=== PATIENT | female | born 1980 | race Caucasian/White ===

== ENCOUNTER 2017-12-17 09:51 | Emergency (ER) | payer OTHER ==
[~2017-12-17] VITALS: Ht 162.6 cm; Wt 98.0 kg
[~2017-12-17 09:51] MED LIST: ACET-8386 PO
[2017-12-17 10:12] VITALS: BP 121/84
[2017-12-17] MEDS ORDERED: IBUP-1842 PO (10:17)
--- NOTE | 2017-12-17 10:33 | NUR ---
PT BROUGHT INTO OF 3 WITH C/O R HIP PAIN X4DAYS, STS RADIATING DOWN R LEG. STS TAKING IBUPROFEN AT HOME FOR PAIN, BUT NO RELIEF. DENIES TRAUMA OR FEVER. RESP EVEN AND UNLABORED, ON RA@99%. HX DENIES. AX DENIES.
[2017-12-17] MEDS ORDERED: KETOROLAC 30 MG/ML VIAL IM ONE (11:05)
--- NOTE | 2017-12-17 11:34 | NUR ---
PT TO X-RAY VIA WC
--- NOTE | 2017-12-17 12:14 | NUR ---
pt reports feeling better after pain med given. [email or web address] for disposition.
[2017-12-17 12:56] VITALS: BP 132/85
== END 2017-12-17 12:57 | disposition home or self-care (01) ==
LOC: MED 09:51
DX: S73.101A Unspecified sprain of right hip, initial encounter (principal); E66.9 Obesity, unspecified; Z79.899 Other long term (current) drug therapy; X58.XXXA Exposure to other specified factors, initial encounter; Y93.89 Activity, other specified; Y92.89 Other specified places as the place of occurrence of the external cause; Y99.8 Other external cause status
CPT/HCPCS: 73502; 81002; 81025; 96372; 99284; J1885

== ENCOUNTER 2019-03-08 09:37 | Emergency (ER) | payer OTHER ==
[~2019-03-08] VITALS: Ht 165.1 cm; Wt 103.9 kg
[~2019-03-08 09:37] MED LIST changes: -ACET-8386 PO; +IBUP-1842 PO
[2019-03-08 09:44] VITALS: BP 147/97
--- NOTE | 2019-03-08 09:45 | NUR ---
Patient ambulated to bed 3. RN evaluating patient at bedside.
--- NOTE | 2019-03-08 09:45 | NUR ---
ALEXANDRU MOTHER. AAO X4. C/O BLURRY VISION IN THE RIGHT EYE ONLY WHEN READING X 3 WEEKS, NO TRAUMA, PT WAS REFERRED HERE BY PCP. PER PATIENT SHE THINKS THAT THERE IS A FOREIGN OBJECT INSIDE HER RIGHT EYE. PT STATES NO PAIN. DENIES DIZZINESS, N/V. STEADY GAIT. LEFT EYE REACTIVE TO LIGHT, BRISK 3 MM. R EYE DILATED [place]UGG[place] 5 MM. EQUAL DORIS STRENGTH TO UPPER AND LOWER EXTREMITIES. HOB UP. BED SIDE RAILS UP X1. ON LOW BED POSITION, LOCKED. MD MONTANEZ MADE AWARE OF PT STATUS. Addendum: 03/08/19 at 1039 by [employer] ALEXANDRU MOTHER. AAO X4. C/O BLURRY VISION IN THE RIGHT EYE ONLY WHEN READING X 3 WEEKS, NO TRAUMA, PT WAS REFERRED HERE BY PCP. PER PATIENT SHE THINKS THAT THERE IS A FOREIGN OBJECT INSIDE HER RIGHT EYE. PT STATES NO PAIN. DENIES DIZZINESS, N/V. STEADY GAIT. LEFT EYE REACTIVE TO LIGHT, BRISK 3 MM. R EYE DILATED. EQUAL DORIS STRENGTH TO UPPER AND LOWER EXTREMITIES. HOB UP. BED SIDE RAILS UP X1. ON LOW BED POSITION, LOCKED. MD MONTANEZ MADE AWARE OF PT STATUS.
--- NOTE | 2019-03-08 09:50 | NUR ---
Note undone in EDM - 03/08/19 at 1013 by MED BIB MOTHER. AAO X4. C/O BLURRY VISION IN THE RIGHT EYE ONLY WHEN READING X 3 WEEKS, NO TRAUMA, PT WAS REFERRED HERE BY PCP. PER PATIENT SHE THINKS THAT THERE IS A FOREIGN OBJECT INSIDE HER RIGHT EYE. PT STATES NO PAIN. DENIES DIZZINESS, N/V. STEADY GAIT. LEFT EYE REACTIVE TO LIGHT, BRISK 3 MM. R EYE DILATED SLUGG[place] 5 MM. EQUAL DORIS STRENGTH TO UPPER AND LOWER EXTREMITIES. HOB UP. BED SIDE RAILS UP X1. ON LOW BED POSITION, LOCKED. MD MONTANEZ MADE AWARE OF PT STATUS.
--- NOTE | 2019-03-08 10:35 | NUR ---
SNELLEN CHART TEST RESULTS GIVEN TO RESIDENT DOCTOR.
--- NOTE | 2019-03-08 10:35 | NUR ---
SNELLEN CHART TEST DONE. R EYE: 20/80, L EYE: 20/20, BOTH EYES: 20/20
[2019-03-08] MEDS ORDERED: NACL 0.9% 1,000 ML IV SCH (10:45)
[2019-03-08] MEDS ORDERED: NACL 0.9% 1,000 ML IV ONE (10:45)
--- NOTE | 2019-03-08 11:15 | NUR ---
INFORMED CONSENT SIGNED BY PATIENT. PT STATES THAT SHE GETS MILD ALLERGIC REACTION TO SHRIMP WHEN IT IS NOT COOKED, BUT SHE IS ABLE TO EAT COOKED SHRIMP WITH NO PROBLEM.
[2019-03-08 11:23] LABS: ALBUMIN 3.7 g/dL (3.4-5.0); ANION GAP 11.2 (8-16); CARBON DIOXIDE 27.7 mmol/L (21-32); CREATININE 0.8 mg/dL (0.6-1.3); POTASSIUM 3.9 mmol/L (3.5-5.1); TOTAL BILIRUBIN 0.5 mg/dL (0.0-1.0)
[2019-03-08 11:40] LABS: BASOPHILS % (AUTO) 0.6 % (0.0-2.0); EOSINOPHILS # (AUTO) 0.1 K/uL (0-0.4); EOSINOPHILS % (AUTO) 2.2 % (0.0-4.0); HEMATOCRIT 30.4 % (36-48); HEMOGLOBIN 9.2 g/dL (12.0-16.0); LYMPHOCYTES # (AUTO) 1.6 K/uL (2.5-16.5); LYMPHOCYTES % (AUTO) 35.2 % (20.5-51.1); MEAN CORPUSCULAR HEMOGLOBIN 19 pg (27-31); MEAN CORPUSCULAR HGB CONC 30 g/dL (33-37); MEAN CORPUSCULAR VOLUME 63.6 fL (80-94); MONOCYTES # (AUTO) 0.4 K/uL (0.8-1.0); MONOCYTES % (AUTO) 9.3 % (1.7-9.3); NEUTROPHILS # (AUTO) 2.4 K/uL (1.8-7.7); NEUTROPHILS % (AUTO) 52.7 % (42.2-75.2); PLATELET COUNT (AUTO) 215 K/uL (140-450); RED BLOOD CELL COUNT(AUTO) 4.78 MIL/uL (4.20-5.40); RED CELL DISTRIBUTION WIDTH 19.1 % (11.6-13.7); WHITE BLOOD COUNT (AUTO) 4.5 K/uL (4.8-10.8)
[2019-03-08 13:55] VITALS: BP 140/89
--- NOTE | 2019-03-10 08:50 | NUR ---
Late entry. IV fluids 0.9NS IV at 100ml/hr was dc'd at discharge 1355.
== END 2019-03-08 13:55 | disposition home or self-care (01) ==
LOC: MED 09:37
DX: H53.8 Other visual disturbances (principal); E04.2 Nontoxic multinodular goiter; E07.9 Disorder of thyroid, unspecified; Z79.899 Other long term (current) drug therapy
CPT/HCPCS: 36415; 70470; 70492; 80053; 81002; 81025; 84703; 85025; 99284; J7030; Q9967